=== PATIENT | female | born 1975 | race Caucasian/White ===

== ENCOUNTER 2021-06-25 08:37 | Outpatient (CLI) | payer OTHER ==
[2021-06-25 15:31] LABS: SARS-CoV-2 PCR by NAA Not Detected (NotDetected)
== END 2021-06-25 08:38 | disposition home or self-care (01) ==
LOC: CSHLAB 08:37
PROVIDERS: ATTEND Internal Medicine Gastroenterology
DX: Z20.822 Contact with and (suspected) exposure to COVID-19 (principal)
CPT/HCPCS: U0003; U0005

== ENCOUNTER 2021-06-30 08:16 | Day surgery (SDC) | payer OTHER ==
[2021-06-27 10:41] VITALS: BMI 36.6
[2021-06-30] MEDS ORDERED: Lidocaine 1% MPF 2 ML VIAL ONE (09:34)
[2021-06-30] MEDS ORDERED: PROPOFOL 20 ML ONE ×2 (10:09→10:25)
[2021-06-30] MEDS ORDERED: Lidocaine 1% PF 5 ML VIAL ONE (10:09)
== END 2021-06-30 11:20 | disposition home or self-care (01) ==
LOC: CSHSDC 08:16
PROVIDERS: ATTEND Internal Medicine Gastroenterology
PROC: 0DB68ZZ Excision of Stomach, Via Natural or Artificial Opening Endoscopic (ICD-10-PCS; principal; 2021-06-30)
PROC: 0DBH8ZZ Excision of Cecum, Via Natural or Artificial Opening Endoscopic (ICD-10-PCS; principal; 2021-06-30)
DX: Z12.11 Encounter for screening for malignant neoplasm of colon (principal); K21.00 Gastro-esophageal reflux disease with esophagitis, without bleeding; K52.9 Noninfective gastroenteritis and colitis, unspecified; K25.9 Gastric ulcer, unspecified as acute or chronic, without hemorrhage or perforation; K64.9 Unspecified hemorrhoids; M79.7 Fibromyalgia; E78.5 Hyperlipidemia, unspecified; E66.9 Obesity, unspecified
CPT/HCPCS: 88305; J2704

== ENCOUNTER 2024-01-12 11:14 | Outpatient (CLI) | payer OTHER | END 2024-01-12 11:15 | disposition home or self-care (01) | LOC: CSHMAMMO 11:14 | PROVIDERS: ATTEND Family Medicine | DX: Z12.31 Encounter for screening mammogram for malignant neoplasm of breast (principal); Z80.3 Family history of malignant neoplasm of breast | CPT/HCPCS: 77063; 77067 ==

== ENCOUNTER 2024-12-08 15:23 | Emergency (ER) | payer OTHER ==
[2024-12-08] MEDS ORDERED: Boostrix 0.5 ML (Tdap) VIAL (>/=7 yrs of age) ONE (16:07)
== END 2024-12-08 17:35 | disposition home or self-care (01) ==
LOC: CSHERS 15:23
DX: S81.811A Laceration without foreign body, right lower leg, initial encounter (principal); W10.8XXA Fall (on) (from) other stairs and steps, initial encounter
CPT/HCPCS: 12002; 72220; 90471; 90715